=== PATIENT | female | born 1990 | race Caucasian/White ===

== ENCOUNTER 2017-01-30 16:31 | Emergency (ER) | payer MEDICAID | END 2017-01-30 17:49 | disposition home or self-care (01) | DX: S93.601A Unspecified sprain of right foot, initial encounter (principal); W01.0XXA Fall on same level from slipping, tripping and stumbling without subsequent striking against object, initial encounter; Y92.019 Unspecified place in single-family (private) house as the place of occurrence of the external cause; F17.200 Nicotine dependence, unspecified, uncomplicated ==

== ENCOUNTER 2017-05-10 11:07 | Emergency (ER) | payer MEDICAID ==
[2017-05-10] MEDS ORDERED: HYDROmorphone 1 MG/ML SYRINGE IM STA ×2 (11:44→13:00)
[2017-05-10] MEDS ORDERED: PROMETHAZINE 25 MG/1 ML VIAL IM STA (11:44)
[2017-05-10] MEDS ORDERED: DEXAMETHASONE 10 MG/ML VIAL PO STA (11:45)
[2017-05-10] MEDS ORDERED: PROMETHAZINE 25 MG/1 ML VIAL ONE (11:52)
[2017-05-10] MEDS ORDERED: HYDROmorphone 1 MG/ML SYRINGE ONE ×2 (11:52→13:17)
[2017-05-10] MEDS ORDERED: DEXAMETHASONE 10 MG/ML VIAL ONE (11:52)
[2017-05-10] MEDS ORDERED: KETOROLAC 60 MG/2 ML VIAL IM STA (13:00)
[2017-05-10] MEDS ORDERED: KETOROLAC 60 MG/2 ML VIAL ONE (13:17)
[2017-05-10 13:34] VITALS: BP 107/67
--- NOTE | 2017-05-10 13:53 | ED Physician Documentation ---
PD HPI BACK PAIN - Stated complaint Stated Complaint: BACK PX - Chief complaint Chief Complaint: Back Pain - History obtained from History obtained from: Patient, Family (Father) - History of Present Illness Timing - onset: Today Timing - details: Still present Location: Lower Quality: Pain, Similar to prior episodes Associated symptoms: No: Fever, Weakness, Numbness, Incontinent of urine Contributing factors: Twisting Similar symptoms before: Work up / diagnostics (She has undergone MRI of her lumbar spine twice in the past. 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 The pain was initially so bad that she was unable to walk. She took one of her father's Percocet which provided slight improvement. She has a history of recurrent back pain intermittently for the past 5 years. She has undergone evaluation with x-rays and has undergone MRI 2. She has been treated with spinal injections which have not significantly helped. The last time her pain was this bad was about 8 months ago. She denies numbness or weakness in her extremities. She denies urinary incontinence, and denies fever. Review of Systems Constitutional: denies: Fever Nose: denies: Congestion Throat: denies: Sore throat Cardiac: denies: Chest pain / pressure Respiratory: denies: Dyspnea, Cough GI: denies: Abdominal Pain, Nausea, Vomiting : denies: Dysuria, Incontinent Skin: denies: Rash Musculoskeletal: reports: Back pain. denies: Neck pain, Extremity pain Neurologic: denies: Focal weakness, Numbness, Headache PD PAST MEDICAL HISTORY - Past Medical History Cardiovascular: None Respiratory: None Neuro: None Endocrine/Autoimmune: None Musculoskeletal: Chronic back pain - Past Surgical History Past Surgical History: No - Present Medications Home Medications: Ambulatory Orders Medication Instructions Recorded Confirmed Dextroamphetamine/Amphetamine 30 mg PO DAILY 01/30/17 05/10/17 [Adderall Xr 30 mg Capsule] Multivitamin [Multivitamins] 1 each PO DAILY 01/30/17 05/10/17 Clotrimazole [Clotrimazole AF] 28 gm TP BID #1 tu 05/10/17 Cyclobenzaprine [Flexeril] 10 mg PO TID PRN #20 tablet 05/10/17 Naproxen [Naprosyn] 1,000 mg PO DAILY 05/10/17 05/10/17 Prednisone 30 mg PO DAILY #15 tablet 05/10/17 oxyCODONE/ACET 5/325 [Percocet 5 1 - 2 tab PO Q4-6H PRN #20 tablet 05/10/17 mg/325 mg] - Allergies Allergies/Adverse Reactions: Allergies Allergy/AdvReac Type Severity Reaction Status Date / Time pearson Allergy Rash Verified 05/10/17 11:16 red (food color) Allergy Rash Verified 05/10/17 11:16 artificial pearson Allergy Rash Uncoded 05/10/17 11:16 - Social History Does the pt smoke?: Yes Smoking Status: Current some day smoker Does the pt drink ETOH?: Yes Does the pt have substance abuse?: No - Immunizations Immunizations are current?: Yes PD ED PE NORMAL - Vitals Vital signs reviewed: Yes (initially hypertensive.) - General General: Alert and oriented X 3, Well developed/nourished, Other (overweight) - HEENT HEENT: Atraumatic, EOMI - Neck Neck: Supple, no meningeal sign, No bony TTP, No adenopathy - Cardiac Cardiac: RRR, No murmur - Respiratory Respiratory: No respiratory distress, Clear bilaterally - Abdomen Abdomen: Soft, Non tender - Back Back: No CVA TTP, Other (There is tenderness to palpation in the paralumbar musculature bilaterally. There is no focal tenderness to palpation over the spinous processes.) - Derm Derm: No rash - Extremities Extremities: No edema, No calf tenderness / cord, Other (Straight leg raise test is negative bilaterally.) - Neuro Neuro: Alert and oriented X 3, No motor deficit, No sensory deficit, Other ( Deep tendon reflexes are 2+ and equal bilaterally at the patellar and Achilles tendons.) Results - Vitals Vitals: Oxygen O2 Source Room air PD MEDICAL DECISION MAKING - ED course Complexity details: reviewed old records, reviewed results, re-evaluated patient , considered differential, d/w patient, d/w family ED course: The patient's presentation is most consistent with acute exacerbation of recurrent low back pain. There is no neurologic deficit detected on examination of her lower extremities. Her presentation does not suggest epidural abscess, cauda equina syndrome, or spinal stenosis. Intervertebral disc herniation is a consideration, but I do not think repeat MRI is clinically indicated at this time. Treatment in the emergency department included administration of dexamethasone 10 mg orally, hydromorphone 1 mg IM, and Phenergan 25 mg IM. On reexamination she remained significantly symptomatic so an additional milligram of hydromorphone was administered IM, along with ketorolac 60 mg IM. Following this her symptoms markedly improved. She is being discharged with prescriptions for Percocet, 20 tablets, Flexeril, and prednisone. I discussed with her and her father symptomatic treatment and outpatient follow-up, as well as potentially worrisome signs or symptoms that should prompt reevaluation in the emergency department. Departure - Departure Disposition: 01 Home, Self Care Clinical Impression: Acute exacerbation of chronic low back pain, Ringworm, body Condition: Stable Instructions: ED Low Back Pain Injury, ED Ringworm Infec Fungal Follow-Up: Ernesto Kaiser MD [Physician No Access] - Prescriptions: Clotrimazole [Clotrimazole AF] 28 gm TP BID #1 tu Cyclobenzaprine [Flexeril] 10 mg PO TID PRN #20 tablet PRN Reason: Spasms oxyCODONE/ACET 5/325 [Percocet 5 mg/325 mg] 1 - 2 tab PO Q4-6H PRN #20 tablet PRN Reason: Pain Prednisone 30 mg PO DAILY #15 tablet Comments: Apply ice pack to your lower back intermittently for the next 4 days. You can use Percocet as prescribed if needed for pain. You can use Flexeril as prescribed if needed for muscle spasms. Take prednisone daily for 5 days as prescribed. Follow up with your primary physician. Call to schedule for next available appointment. Return to the emergency department if you develop increasing pain or otherwise worsening symptoms, despite the pain medication. Discharge Date/Time: 05/10/17 14:10
== END 2017-05-10 14:10 | disposition home or self-care (01) ==
LOC: ED 11:07
DX: M54.5 Low back pain (principal); G89.29 Other chronic pain; B35.4 Tinea corporis; F17.200 Nicotine dependence, unspecified, uncomplicated
CPT/HCPCS: 96372; 99283; J1170

== ENCOUNTER 2020-05-25 13:57 | Emergency (ER) | payer MEDICAID ==
--- NOTE | 2020-05-25 14:05 | ED Physician Documentation ---
PD HPI SKIN - Stated complaint Stated Complaint: FEVER/BREAST PX - History obtained from History obtained from: Patient - History of Present Illness Timing - onset: How many days ago (4) Timing - duration: Days (4 days of initially cracked and tender nipples, using francisco butter and then drying it the past couple days with witch mee. Still pumping breastmilk, as nursing was too tender. Now with redness and swelling of left breast mostly. Pain of both. Feeling chilled and malaise.) Location: Other (both breasts.) Quality / character: Painful, Discolored, Swelling Associated symptoms: Myalgias. No: Fever, Dyspnea, N/V/D Contributing factors: Other (breast feeding. 11 days post .) Similar symptoms before: Has not had sx before Recently seen: Admitted (vaginal delivery 11 days ago without problems.) Review of Systems Constitutional: reports: Chills, Myalgias. denies: Fever Nose: denies: Rhinorrhea / runny nose, Congestion Throat: denies: Sore throat Respiratory: denies: Cough GI: reports: Nausea. denies: Abdominal Pain, Vomiting, Diarrhea : denies: Dysuria, Frequency PD PAST MEDICAL HISTORY - Past Medical History Cardiovascular: None Respiratory: None Endocrine/Autoimmune: None Musculoskeletal: Chronic back pain - Past Surgical History Past Surgical History: No - Present Medications Home Medications: Ambulatory Orders Medication Instructions Recorded Confirmed Dextroamphetamine/Amphetamine 30 mg PO DAILY 01/30/17 05/10/17 [Adderall Xr 30 mg Capsule] Multivitamin [Multivitamins] 1 each PO DAILY 01/30/17 05/10/17 Clotrimazole [Clotrimazole AF] 28 gm TP BID #1 tu 05/10/17 Cyclobenzaprine [Flexeril] 10 mg PO TID PRN #20 tablet 05/10/17 Naproxen [Naprosyn] 1,000 mg PO DAILY 05/10/17 05/10/17 oxyCODONE/ACET 5/325 [Percocet 5 1 - 2 tab PO Q4-6H PRN #20 tablet 05/10/17 mg/325 mg] predniSONE [Prednisone] 30 mg PO DAILY #15 tablet 05/10/17 Cephalexin [Keflex] 500 mg PO Q6H #28 capsule 05/25/20 Hydrocodone/Acetaminophen [[place] 1 each PO Q6H PRN #10 tablet 05/25/20 5-325 Tablet] - Allergies Allergies/Adverse Reactions: Allergies Allergy/AdvReac Type Severity Reaction Status Date / Time pearson Allergy Rash Verified 05/10/17 11:16 red (food color) Allergy Rash Verified 05/10/17 11:16 artificial pearson Allergy Rash Uncoded 05/10/17 11:16 - Social History Does the pt smoke?: Yes Smoking Status: Current some day smoker Does the pt drink ETOH?: Yes Does the pt have substance abuse?: No - Immunizations Immunizations are current?: Yes PD ED PE NORMAL - Vitals Vital signs reviewed: Yes - General General: Alert and oriented X 3, No acute distress, Well developed/nourished - Cardiac Cardiac: RRR, No murmur - Respiratory Respiratory: Clear bilaterally - Derm Derm: Other (both breasts with firmness and tenderness upper aspects. The right one is firm and tender without redness about 10-12 oclock position. The left breast with very tender, redness/warmth, at upper aspect. Both nipples with chapping and some scabbing. No discharge. ) - Neuro Neuro: Alert and oriented X 3, No motor deficit, Normal speech Results - Vitals Vitals: Vital Signs - 24 hr 05/25/20 05/25/20 05/25/20 14:15 14:19 15:17 Temperature 37.6 C H 37.6 C H 37.3 C Heart Rate 120 H 110 H 107 H Respiratory 20 18 18 Rate Blood Pressure 120/87 H 129/78 139/84 H O2 Saturation 100 96 96 05/25/20 15:26 Temperature 37.6 C H Heart Rate 101 H Respiratory 16 Rate Blood Pressure 144/86 H O2 Saturation 97 Oxygen O2 Source Room air PD MEDICAL DECISION MAKING - ED course Complexity details: considered differential (mastitis mostly left breast with redness/warmth/tender. Tender right breast as well. ), d/w patient Departure - Departure Disposition: 01 Home, Self Care Clinical Impression: Acute mastitis Condition: Stable Record reviewed to determine appropriate education?: Yes Instructions: ED Breast Infec Prescriptions: Cephalexin [Keflex] 500 mg PO Q6H #28 capsule Hydrocodone/Acetaminophen [[place] 5-325 Tablet] 1 each PO Q6H PRN #10 tablet PRN Reason: Pain Comments: Continue to pump or breast-feed to maintain flow out from the glands. Cephalexin as directed for the infection. You can use naproxen twice daily for inflammation and pain with food for the short-term. Add Tylenol or hydrocodone if needed for pain. I would anticipate improvement over the next 2 to 3 days. Recheck if not improving well in that timeframe and return sooner if worse. Discharge Date/Time: 05/25/20 16:15
[2020-05-25] MEDS ORDERED: cephALEXin 250 MG CAPSULE PO STA (14:34)
[2020-05-25] MEDS ORDERED: KETOROLAC 30 MG/ML VIAL IM STA (14:34)
[2020-05-25 15:28] VITALS: BP 144/86
== END 2020-05-25 16:15 | disposition home or self-care (01) ==
LOC: ED 13:57
DX: O91.22 Nonpurulent mastitis associated with the puerperium (principal); F17.200 Nicotine dependence, unspecified, uncomplicated
CPT/HCPCS: 96372; 99283; 99284; A9270

== ENCOUNTER 2020-06-29 18:41 | Emergency (ER) | payer MEDICAID ==
[2020-06-29] MEDS ORDERED: FLUCONAZOLE 100 MG TABLET PO STA (18:46)
--- NOTE | 2020-06-29 18:46 | ED Physician Documentation ---
PD HPI SKIN - Stated complaint Stated Complaint: MASTITIS - History obtained from History obtained from: Patient (29-year-old woman is breast-feeding a 1-month-old. 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 Psych: ADD/ADHD Musculoskeletal: Chronic back pain Derm: None - Past Surgical History Past Surgical History: No - Present Medications Home Medications: Ambulatory Orders Medication Instructions Recorded Confirmed Dextroamphetamine/Amphetamine 30 mg PO DAILY 01/30/17 05/10/17 [Adderall Xr 30 mg Capsule] Multivitamin [Multivitamins] 1 each PO DAILY 01/30/17 05/10/17 Clotrimazole [Clotrimazole AF] 28 gm TP BID #1 tu 05/10/17 Cyclobenzaprine [Flexeril] 10 mg PO TID PRN #20 tablet 05/10/17 Naproxen [Naprosyn] 1,000 mg PO DAILY 05/10/17 05/10/17 oxyCODONE/ACET 5/325 [Percocet 5 1 - 2 tab PO Q4-6H PRN #20 tablet 05/10/17 mg/325 mg] predniSONE [Prednisone] 30 mg PO DAILY #15 tablet 05/10/17 Cephalexin [Keflex] 500 mg PO Q6H #28 capsule 05/25/20 Hydrocodone/Acetaminophen [[place] 1 each PO Q6H PRN #10 tablet 05/25/20 5-325 Tablet] Fluconazole [Diflucan] 200 mg PO DAILY #14 tablet 06/29/20 - Allergies Allergies/Adverse Reactions: Allergies Allergy/AdvReac Type Severity Reaction Status Date / Time pearson Allergy Rash Verified 05/10/17 11:16 red (food color) Allergy Rash Verified 05/10/17 11:16 artificial pearson Allergy Rash Uncoded 05/10/17 11:16 - Social History Does the pt smoke?: Yes Smoking Status: Current some day smoker Does the pt drink ETOH?: Yes Does the pt have substance abuse?: No - Immunizations Immunizations are current?: Yes PD ED PE NORMAL - Vitals Vital signs reviewed: Yes - General General: Alert and oriented X 3, No acute distress - Derm Derm: Other (Exam done with Lenore RN, the right nipple is cracked and erythematous with some cheesy material but no purulent drainage.) - Neuro Neuro: Alert and oriented X 3, Normal speech Results - Vitals Vitals: Oxygen O2 Source Room air Departure - Departure Disposition: Home, Self Care Clinical Impression: Candidiasis of breast Condition: Good Record reviewed to determine appropriate education?: Yes Instructions: ED Candidiasis Cutaneous Prescriptions: Fluconazole [Diflucan] 200 mg PO DAILY #14 tablet Comments: Call your doctor to arrange a follow-up appointment, make the next available appointment. In the interim, return anytime if worse or if new symptoms develop.
[2020-06-29 18:53] VITALS: BP 124/84
== END 2020-06-29 18:56 | disposition home or self-care (01) ==
LOC: ED 18:41
DX: O91.22 Nonpurulent mastitis associated with the puerperium (principal); F17.200 Nicotine dependence, unspecified, uncomplicated
CPT/HCPCS: 99282; 99283; A9270

== ENCOUNTER 2023-05-10 21:15 | Emergency (ER) | payer MEDICAID ==
[2023-05-10 21:31] VITALS: BP 132/84; O2SAT 100
[2023-05-10] MEDS ORDERED: BUFFERED LIDOCAINE 10 ML SYRINGE SUBQ STA (21:33)
--- NOTE | 2023-05-10 21:46 | ED Physician Documentation ---
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 Psych: ADD/ADHD Musculoskeletal: Chronic back pain Derm: None - Past Surgical History Past Surgical History: No - Present Medications Home Medications: Ambulatory Orders Medication Instructions Recorded Confirmed Dextroamphetamine/Amphetamine 30 mg PO DAILY 01/30/17 05/10/17 [Adderall Xr 30 mg Capsule] Multivitamin [Multivitamins] 1 each PO DAILY 01/30/17 05/10/17 Clotrimazole [Clotrimazole AF] 28 gm TP BID #1 tu 05/10/17 Cyclobenzaprine [Flexeril] 10 mg PO TID PRN #20 tablet 05/10/17 Naproxen [Naprosyn] 1,000 mg PO DAILY 05/10/17 05/10/17 oxyCODONE/ACET 5/325 [Percocet 5 1 - 2 tab PO Q4-6H PRN #20 tablet 05/10/17 mg/325 mg] predniSONE [Prednisone] 30 mg PO DAILY #15 tablet 05/10/17 Hydrocodone/Acetaminophen [[place] 1 each PO Q6H PRN #10 tablet 05/25/20 5-325 Tablet] cephALEXin [Keflex] 500 mg PO Q6H #28 capsule 05/25/20 Fluconazole [Diflucan] 200 mg PO DAILY #14 tablet 06/29/20 - Allergies Allergies/Adverse Reactions: Allergies Allergy/AdvReac Type Severity Reaction Status Date / Time pearson Allergy Rash Verified 05/10/23 21:28 red (food color) Allergy Rash Verified 05/10/23 21:28 adhesive AdvReac Rash Verified 05/10/23 21:28 artificial pearson Allergy Rash Uncoded 05/10/23 21:28 - Social History Does the pt smoke?: Yes Smoking Status: Current some day smoker Does the pt drink ETOH?: Yes Does the pt have substance abuse?: No - Immunizations Immunizations are current?: Yes PD ED PE NORMAL - Vitals Vital signs reviewed: Yes - General General: Alert and oriented X 3, No acute distress - Extremities Extremities: Other (1-1/2 cm shallow laceration over the lateral malleolus of the left ankle, no distal neurovascular lack of sensation.) - Neuro Neuro: Alert and oriented X 3, Normal speech Results - Vitals Vitals: Vital Signs - 24 hr 05/10/23 21:24 Temperature 36.8 C Heart Rate 76 Respiratory 18 Rate Blood Pressure 132/84 H O2 Saturation 100 Oxygen O2 Source Room air Procedures - Laceration (location) L ankle Length in cm: 2 Wound type: Linear Neurovascular status: Sensory intact, Motor intact, Vascular intact Anesthesia: Lidocaine 1%, With bicarb Wound preparation: Irrigated copiously NS Skin layer closure: Nylon, Interrupted, Size #-0 - enter number (4-0), Sutures - enter # Other: Tetanus UTD Departure - Departure Disposition: 01 Home, Self Care Clinical Impression: Laceration of left ankle Qualifiers: Encounter type: initial encounter Qualified Code(s): S91.012A - Laceration without foreign body, left ankle, initial encounter Condition: Good Record reviewed to determine appropriate education?: Yes Instructions: ED Laceration Ext Sutr Stap Tape Comments: Come back for any signs of infection which would include: Redness, swelling, drainage, increased pain, or fevers. You can wash it soap and water. Keep it covered and moist with bacitracin ointment which is available over the counter; avoid neosporin. Follow-up with your physician in about 14 days for suture removal. Forms: PCP List
== END 2023-05-10 22:24 | disposition home or self-care (01) ==
LOC: ED 21:15
DX: S91.012A Laceration without foreign body, left ankle, initial encounter (principal); W25.XXXA Contact with sharp glass, initial encounter; Z79.899 Other long term (current) drug therapy
CPT/HCPCS: 12001; 99283